=== PATIENT | male | born 1990 | race Caucasian/White ===

== ENCOUNTER 2023-09-10 09:15 | Outpatient (CLI) | payer OTHER, SELFPAY ==
--- NOTE | ~2023-09-10 | US_ITS ---
Ultrasound-guided area of concern in the posterior right head ULTRASOUND Ordering provider: Wadna Frankel PA-C History: . R22.0 - Localized swelling, mass and lump, head . Comparison: None. FINDINGS impression: Area 1: no mass. Slight thickening in the subcutaneous tissue compared to the left side is seen. Infl ammatory changes cannot be excluded. Clinical evaluation advised. Areas 2: Lymph node is noted measuring 0.6 x 0.7 x 0.4 cm. No masses seen. Reviewed, dictated and finalized at location A.
== END 2023-09-10 09:16 ==
LOC: GOSHIMG 09:17
PROVIDERS: PCP Student in an Organized Health Care Education/Training Program; Visit Provider Student in an Organized Health Care Education/Training Program
DX: R22.0 Localized swelling, mass and lump, head (principal)
CPT/HCPCS: 76536